=== PATIENT | male | born 1970 | race Caucasian/White ===

== ENCOUNTER → 2023-12-21 15:38 | Outpatient (REF) | payer OTHER, SELFPAY | LOC: RAD 15:38 | PROVIDERS: ATTENDING PHYSICIAN Physician Assistant | DX: R10.30 Lower abdominal pain, unspecified (principal); F17.200 Nicotine dependence, unspecified, uncomplicated; N40.0 Benign prostatic hyperplasia without lower urinary tract symptoms | CPT/HCPCS: 74177; Q9967 ==

== ENCOUNTER 2025-07-09 10:11 | Emergency (ER) | payer OTHER, SELFPAY ==
[2025-07-09] VITALS (7 sets, daily range): BP systolic 123–161; BP diastolic 89–122; BMI 23.6
--- NOTE | 2025-07-09 10:35 | ED.GENMED ---
History of Present Illness
<DO Otilia Hawkins Last Filed: 07/11/25 00:29>
General
Chief Complaint: Heart Rate Problem
Source: patient
Time Seen by Provider: 07/09/25 10:34
History of Present Illness
History of Present Illness:
54-year-old male presents to the emergency room complaining of palpitations and chest discomfort. Patient states that he began having a pressure-like sensation around 7 AM. He went to see a nurse at work who said he had an irregular heart rate
should come get checked out. Patient denies any previous cardiac history. He does smoke. Does drink alcohol about 3 drinks a day that we had more yesterday. No fever or chills. No recent travel. Chest pain does not seem worse with deep
inspiration.
Past History
<DO Otilia Hawkins Last Filed: 07/11/25 00:29>
Past History
ED Past Medical History: Other (chronic low back pain)
Social History
Tobacco: Smoker
Alcohol: Daily
Personal:
Living: with family
Employment: Employed
Family History
Family History: CAD
Phy Exam
<DO Otilia Hawkins Last Filed: 07/11/25 00:29>
Physical Exam
Physical Exam:
General: Awake, Alert, Oriented X3. No acute distress.
Vitals: Tachycardic
Head: Atraumatic
Eyes: Pupils equal, EOMI
Throat: Airway intact, no exudates
Neck: Trachea midline
Lungs: Clear and equal b/l
Heart: Occasional ectopy, regular rate, no murmurs
Abd: Soft, Nontender, No pulsatile mass
Neuro: Nonfocal
Skin: Warm, dry, no rash
Extremities: pulses equal b/l, no edema
Course
<DO Otilia Hawkins Last Filed: 07/11/25 00:29>
Orders/Labs/Results
Orders:
Orders
07/09/25 10:25
ECG [Electrocardiogram (*1)] Urgent
Reason for Study: Palpitations
EKG- Treatment ONCE
07/09/25 10:46
CR Chest - 2 Views Urgent
Comment:
Reason For Exam: chest pain
07/09/25 10:49
0.9% Sodium Chloride 1000 ml [Nss] 1,000 ml IV BOLUS
07/09/25 10:58
CMP [Comprehensive Metabolic Panel] Urgent
Complete Blood Count/With Diff Urgent
D-Dimer Urgent
TSH Reflex To Free T4 Urgent
Troponin I Urgent
07/09/25 12:46
CT Chest PE Study Urgent
Comment:
Reason For Exam: sob, palpitations
Abnormal Lab Results
07/09/25
10:58
Hgb 18.6 H g/dL
(13.0-18.0)
Hct 52.2 H %
(39.0-52.0)
MCV 97.4 H fL
(80.0-94.0)
MCH 34.7 H pg
(27.0-31.0)
Absolute Neuts (auto) 7.1 H 10^3/uL
(1.4-6.5)
Absolute Monos (auto) 0.8 H 10^3/uL
(0.1-0.6)
Lymphocytes % 18.6 L %
(20.5-51.1)
D-Dimer 0.70 H ug/mlFEU
(0.00-0.50)
BUN 5 L mg/dl
(9-20)
Glucose 106 H mg/dl
(70-99)
07/09/25 10:58
07/09/25 10:58
Vital Signs
Initial and Last Documented VS:
Initial Vital Signs
Temp Pulse Resp BP Pulse Ox
98.7 F 124 18 161/122 97
07/09/25 10:21 07/09/25 10:21 07/09/25 10:21 07/09/25 10:21 07/09/25 10:21
Last Documented Vital Signs
Temp Pulse Resp BP Pulse Ox
98.7 F 86 22 152/94 97
07/09/25 10:21 07/09/25 16:15 07/09/25 16:15 07/09/25 14:00 07/09/25 16:15
<Jerardo Real, DO - Last Filed: 07/09/25 16:09>
Orders/Labs/Results
Orders:
Orders
07/09/25 10:25
ECG [Electrocardiogram (*1)] Urgent
Reason for Study: Palpitations
EKG- Treatment ONCE
07/09/25 10:46
CR Chest - 2 Views Urgent
Comment:
Reason For Exam: chest pain
07/09/25 10:49
0.9% Sodium Chloride 1000 ml [Nss] 1,000 ml IV BOLUS
07/09/25 10:58
CMP [Comprehensive Metabolic Panel] Urgent
Complete Blood Count/With Diff Urgent
D-Dimer Urgent
TSH Reflex To Free T4 Urgent
Troponin I Urgent
07/09/25 12:46
CT Chest PE Study Urgent
Comment:
Reason For Exam: sob, palpitations
Abnormal Lab Results
07/09/25
10:58
Hgb 18.6 H g/dL
(13.0-18.0)
Hct 52.2 H %
(39.0-52.0)
MCV 97.4 H fL
(80.0-94.0)
MCH 34.7 H pg
(27.0-31.0)
Absolute Neuts (auto) 7.1 H 10^3/uL
(1.4-6.5)
Absolute Monos (auto) 0.8 H 10^3/uL
(0.1-0.6)
Lymphocytes % 18.6 L %
(20.5-51.1)
D-Dimer 0.70 H ug/mlFEU
(0.00-0.50)
BUN 5 L mg/dl
(9-20)
Glucose 106 H mg/dl
(70-99)
07/09/25 10:58
07/09/25 10:58
Vital Signs
Initial and Last Documented VS:
Initial Vital Signs
Temp Pulse Resp BP Pulse Ox
98.7 F 124 18 161/122 97
07/09/25 10:21 07/09/25 10:21 07/09/25 10:21 07/09/25 10:21 07/09/25 10:21
Last Documented Vital Signs
Temp Pulse Resp BP Pulse Ox
98.7 F 86 22 152/94 97
07/09/25 10:21 07/09/25 16:15 07/09/25 16:15 07/09/25 14:00 07/09/25 16:15
<Clive H. DO Emily - Last Filed: 07/11/25 00:29>
MDM/Problems Addressed
Differential Diagnosis Includes:
A-fib, PACs, PVCs
MDM/Problems Addressed:
Patient presents with palpitations, chest pain. His heart rate is irregular. EKG here shows sinus tachycardia. PVCs noted on the monitor. Labs are unremarkable. CT of the chest shows no acute abnormalities.
<Clive HMely Diza DO - Last Filed: 07/11/25 00:29>
*Radiology
Radiology exam reviewed: radiology read reviewed
*Pulse Oximetry
SaO2: 97
Oxygen Mode of Delivery: Room air
Patient hypoxic: no
*EKG
Interpreted by ED Provider?: Yes
Heart Rate: 113
Rate: tachycardiac
Rhythm: sinus tachycardia
[place]: normal axis
Interval: normal interval
QRS Pattern: normal QRS
Ischemia: no ischemia
*Material Clerk Interpretation
Rate: tachycardiac
Interpretation: abnormal
Heart Rate: 113
Rhythm: sinus tachycardia
*Critical Care Note
Total Time (30-74mins, 75-104mins- exclusive of procedures): Not Applicable
<Jerardo Real, DO - Last Filed: 07/09/25 16:09>
Update Note
Update Note:
Care of patient was transition pending CT. CT negative for pulmonary embolism. Patient states he is feeling much better. Patient has a negative troponin. Will place on cardiac callback tracker.
ED Attending Note
<Clive Diaz, DO - Last Filed: 07/11/25 00:29>
-
Portions of this chart may have been created with voice recognition software.� Occasional wrong word or��sound alike� substitutions may have occurred due to the inherent limitations of voice recognition software.
Discharge Plan
Departure
Patient Disposition: Home (Routine Discharge)
Date of Disposition: 07/09/25
Time of Disposition: 16:07
Patient with high blood pressure during this ER visit?: No
Discharge Problem:
Chest pain
Instructions: Chest Pain CBC Follow Up
Prescriptions:
No Action
No Meds [No Current Medications]
0
Referrals:
Barbara Malik PA-C [Family Provider, Internal Medicine]
Behzad Bello MD [Active, Cardiology]
Activity Restrictions/Additional Instructions:
Please return for any worsening symptoms.
You may return at any time if you have further concerns.
Please follow up with your doctor at the first available appointment, preferably this week.
You were placed on the cardiac callback tracker. Someone from their office should call you in the next few days. If you do not hear from them in the next few days, please give them a call.
Thank you for choosing [facility].
Interventions
Interventions:
*Risk Screen - Suicide Last Done: 07/09/25 10:21
*General Assessment Last Done: 07/09/25 10:38
*Neglect/Abuse Screening Last Done: 07/09/25 10:40
*ED- Fall Risk Assessment Last Done: 07/09/25 10:38
*ED COVID-19 Vaccine History Last Done: 07/09/25 10:38
*ED Influenza Vaccine History Last Done: 07/09/25 10:38
*Nursing Disposition Last Done: 07/09/25 17:16
ED- Cardiac Assessment Last Done: 07/09/25 10:38
ED- Pulmonary Assessment Last Done: 07/09/25 10:38
Discharge Date and Time
Discharge Date/Time: 07/09/25 16:40
Print Language: PORTUGUESE
[2025-07-09] MEDS: NSS 1000 IV (10:56)
[2025-07-09 11:33] LABS: D-Dimer 0.70 ug/mlFEU (0.00-0.50); Hematocrit 52.2 % (39.0-52.0); Hemoglobin 18.6 g/dL (13.0-18.0); Mean Corp Hgb Conc. 35.6 g/dL (33.0-37.0); Mean Corpuscular Volume 97.4 fL (80.0-94.0); Nucleated Red Blood Cells % 0 % (-); Platelet Count 257 10^3/uL (130-400); Red Cell Dist. Width 13.2 % (11.5-14.5)
[2025-07-09 11:35] LABS: ALT (SGPT) 34 U/L (0-50); AST (SGOT) 50 U/L (17-59); Albumin 4.1 g/dl (3.5-5.0); Alkaline Phosphatase 99 U/L (38-126); Blood Urea Nitrogen 5 mg/dl (9-20); Calcium 9.3 mg/dl (8.4-10.2); Carbon Dioxide 26 mmol/L (22-30); Chloride 107 mmol/L (98-107); Estimated Creatinine Clearance 106 ml/min; Glucose 106 mg/dl (70-99); Potassium 4.4 mmol/L (3.5-5.1); Sodium 139 mmol/L (135-145); Total Protein 7.0 g/dl (6.3-8.2); eGFR > 60.00
[2025-07-09 11:47] LABS: Troponin I < 0.012 ng/ml
--- NOTE | 2025-07-09 17:15 | EDRN ---
Discharge instructions reviewed with patient. Verbalized understanding. Ambulated with steady gait to the lobby.
== END 2025-07-09 16:40 | disposition home or self-care (01) ==
LOC: EMR 10:11
PROVIDERS: EMERGENCY PHYSICIAN Emergency Medicine; FAMILY PHYSICIAN Physician Assistant
DX: R07.9 Chest pain, unspecified (principal); R00.0 Tachycardia, unspecified; I49.3 Ventricular premature depolarization; M54.50 Low back pain, unspecified; G89.29 Other chronic pain; F17.200 Nicotine dependence, unspecified, uncomplicated; Z82.49 Family history of ischemic heart disease and other diseases of the circulatory system
CPT/HCPCS: 99284; 96360; 71046; 71275; 80053; 84443; 84484; 85025; 85379; 93005; Q9967

== ENCOUNTER → 2025-08-07 14:39 | Outpatient (REF) | payer OTHER, SELFPAY | LOC: HWRCS 14:39 | PROVIDERS: ATTENDING PHYSICIAN Internal Medicine Cardiovascular Disease; FAMILY PHYSICIAN Physician Assistant | DX: R00.2 Palpitations (principal); Z82.49 Family history of ischemic heart disease and other diseases of the circulatory system | CPT/HCPCS: 93306 ==